=== PATIENT | male | born 1980 | race Caucasian/White ===

== ENCOUNTER 2019-01-03 03:58 | Emergency (ER) | payer MEDICAID ==
[~2019-01-03] VITALS: Ht 177.8 cm; Wt 73.1 kg
[~2019-01-03 03:58] MED LIST: OXYC5CAP2 PO; RANI-467 PO
[2019-01-03 05:13] VITALS: BP 127/68
== END 2019-01-03 05:18 | disposition home or self-care (01) ==
LOC: ED 05:12 → MERGE 05:12 → ED 05:18
DX: F41.9 Anxiety disorder, unspecified (principal); R06.00 Dyspnea, unspecified; F15.10 Other stimulant abuse, uncomplicated; K21.9 Gastro-esophageal reflux disease without esophagitis; F17.200 Nicotine dependence, unspecified, uncomplicated
CPT/HCPCS: 71045; 93005; 99283

== ENCOUNTER 2019-01-06 00:52 | Emergency (ER) | payer MEDICAID ==
[~2019-01-06] VITALS: Ht 177.8 cm; Wt 72.0 kg
[2019-01-06 00:56] VITALS: BP 138/78
== END 2019-01-06 01:31 | disposition home or self-care (01) ==
LOC: EDBD 00:52 → ED 01:25
DX: L03.312 Cellulitis of back [any part except buttock and flank] (principal); L03.114 Cellulitis of left upper limb; Z72.9 Problem related to lifestyle, unspecified; F15.10 Other stimulant abuse, uncomplicated
CPT/HCPCS: 99283

== ENCOUNTER 2019-12-03 22:56 | Emergency (ER) | payer MEDICAID, OTHER ==
[~2019-12-03] VITALS: Ht 177.8 cm; Wt 76.6 kg
[2019-12-03 22:59] VITALS: BP 132/83
--- NOTE | 2019-12-04 01:13 | NUR ---
DR ASCENCIO AT FOR PT HISTORY AND ASSESSMENT.
[2019-12-04] MEDS ORDERED: ONDANSETRON ODT 4 MG ONE (01:23)
--- NOTE | 2019-12-04 01:27 | NUR ---
PT D/C WITH D/C SUMMARY AND SCRIPTS. ALL QUESTIONS ANSWERED. PT AMBULATES TO REGISTRATION DESK WITH STEADY GAIT FOR D/C HOME.
[2019-12-04] MEDS ORDERED: ONDANSETRON ODT 4 MG PO ONE (01:30)
== END 2019-12-04 ==
LOC: ED 12-04 01:29
DX: R11.2 Nausea with vomiting, unspecified (principal); R10.9 Unspecified abdominal pain; F17.210 Nicotine dependence, cigarettes, uncomplicated
CPT/HCPCS: 99283; 99406

== ENCOUNTER 2019-12-28 21:55 | Emergency (ER) | payer MEDICAID ==
[~2019-12-28] VITALS: Ht 177.8 cm; Wt 74.6 kg
[2019-12-28 22:11] VITALS: BP 157/92
[2019-12-28] MEDS ORDERED: MAALOX/HYOSCYAMINE/LIDOCAINE 45 ML BTL ONE (22:54)
[2019-12-28 23:00] LABS: BASOPHILS # (AUTO) 0.04 x10^3/uL (0-0.1); BASOPHILS % (AUTO) 1 % (0-1); EOSINOPHILS # (AUTO) 0.05 x10^3/uL (0-0.4); EOSINOPHILS % (AUTO) 1 % (1-7); LYMPHOCYTES # (AUTO) 1.76 x10^3/uL (1-3.4); LYMPHOCYTES % (AUTO) 20 % (22-44); MD NO; MEAN CORPUSCULAR HEMOGLOBIN 31.8 pg (27.5-34.5); MEAN CORPUSCULAR HGB CONC 33.7 g/dL (33.2-36.2); MEAN CORPUSCULAR VOLUME 94.4 fL (81-97); MEAN PLATELET VOLUME 6.9 fL (7.4-10.4); MONOCYTES # (AUTO) 0.58 x10^3/uL (0.2-0.8); MONOCYTES % (AUTO) 7 % (2-9); NEUTROPHILS # (AUTO) 6.37 x10^3/uL (1.8-6.8); NEUTROPHILS % (AUTO) 72 % (42-75); PLATELET COUNT 338 x10^3/uL (130-400); RED BLOOD COUNT 4.63 x10^6/uL (4.38-5.82); RED CELL DISTRIBUTION WIDTH 13.2 % (9.4-14.8)
[2019-12-28] MEDS ORDERED: MAALOX/HYOSCYAMINE/LIDOCAINE 45 ML BTL PO ONE (23:00)
[2019-12-28 23:09] LABS: ALANINE AMINOTRANSFERASE 106 U/L (12-78); ALBUMIN 3.3 g/dL (3.4-5.0); ANION GAP 4 mmol/L (5-15); CALCIUM 8.3 mg/dL (8.5-10.1); CHLORIDE 110 mmol/L (98-107)
[2019-12-28 23:12] LABS: ALKALINE PHOSPHATASE 91 U/L (45-117); BILIRUBIN,TOTAL 0.5 mg/dL (0.2-1.0); CREATININE 0.93 mg/dL (0.7-1.3); TOTAL PROTEIN 7.5 g/dL (6.4-8.2)
== END 2019-12-28 23:51 | disposition home or self-care (01) ==
LOC: ED 22:55
DX: R10.84 Generalized abdominal pain (principal); F15.10 Other stimulant abuse, uncomplicated; F17.210 Nicotine dependence, cigarettes, uncomplicated; Z72.9 Problem related to lifestyle, unspecified; R00.0 Tachycardia, unspecified
CPT/HCPCS: 36415; 80053; 83690; 85025; 99283; 99406

== ENCOUNTER 2020-01-03 23:03 | Emergency (ER) | payer MEDICAID ==
[~2020-01-03] VITALS: Ht 177.8 cm; Wt 73.8 kg
[2020-01-03 23:41] LABS: BASOPHILS # (AUTO) 0.05 x10^3/uL (0-0.1); BASOPHILS % (AUTO) 0 % (0-1); EOSINOPHILS # (AUTO) 0.06 x10^3/uL (0-0.4); EOSINOPHILS % (AUTO) 1 % (1-7); LYMPHOCYTES % (AUTO) 16 % (22-44); MD NO; MEAN CORPUSCULAR HEMOGLOBIN 31.2 pg (27.5-34.5); MEAN CORPUSCULAR HGB CONC 32.5 g/dL (33.2-36.2); MEAN CORPUSCULAR VOLUME 96.1 fL (81-97); MEAN PLATELET VOLUME 6.6 fL (7.4-10.4); MONOCYTES # (AUTO) 0.61 x10^3/uL (0.2-0.8); MONOCYTES % (AUTO) 5 % (2-9); NEUTROPHILS % (AUTO) 78 % (42-75); PLATELET COUNT 398 x10^3/uL (130-400); RED BLOOD COUNT 5.38 x10^6/uL (4.38-5.82); RED CELL DISTRIBUTION WIDTH 13.4 % (9.4-14.8)
[2020-01-03 23:46] LABS: ANION GAP 9 mmol/L (5-15); CALCIUM 9.2 mg/dL (8.5-10.1); CHLORIDE 112 mmol/L (98-107); CREATININE 0.96 mg/dL (0.7-1.3)
--- NOTE | 2020-01-04 00:35 | NUR ---
PT TO ROOM FROM LOBBY AT THIS TIME.
--- NOTE | 2020-01-04 00:53 | NUR ---
PT TO ED WITH C/O OF TESTICULAR HERNIA. PT REPORTS PUSHING IT BACK IN, HERNIA CURRENTLY OUT. ERP IN ROOM TO DISCUSS POC WITH PT. PT CONNECTED TO MONITORING, CALL LIGHT WITHIN REACH, ALL SAFETY MEASURES IN PLACE.
[2020-01-04 01:06] VITALS: BP 137/74
== END 2020-01-04 01:08 | disposition home or self-care (01) ==
LOC: ED 01-04 00:45
DX: K40.91 Unilateral inguinal hernia, without obstruction or gangrene, recurrent (principal); K59.00 Constipation, unspecified
CPT/HCPCS: 36415; 74021; 76857; 80048; 85025; 99285

== ENCOUNTER 2020-01-15 08:32 | Emergency (ER) | payer MEDICAID ==
[~2020-01-15] VITALS: Ht 177.8 cm; Wt 76.3 kg
[2020-01-15 08:36] VITALS: BP 126/74
== END 2020-01-15 09:15 ==
LOC: ED 09:04
DX: L03.811 Cellulitis of head [any part, except face] (principal); L03.011 Cellulitis of right finger
CPT/HCPCS: 99283

== ENCOUNTER 2020-03-04 21:24 | Emergency (ER) | payer MEDICAID ==
[~2020-03-04] VITALS: Ht 177.8 cm; Wt 72.7 kg
[2020-03-04 21:29] VITALS: BP 125/70
[2020-03-04] MEDS ORDERED: ONDANSETRON ODT 8 MG PO ONE (22:00)
[2020-03-04 22:01] LABS: BASOPHILS # (AUTO) 0.03 x10^3/uL (0-0.1); BASOPHILS % (AUTO) 0 % (0-1); EOSINOPHILS # (AUTO) 0.24 x10^3/uL (0-0.4); EOSINOPHILS % (AUTO) 4 % (1-7); LYMPHOCYTES # (AUTO) 1.61 x10^3/uL (1-3.4); LYMPHOCYTES % (AUTO) 24 % (22-44); MD NO; MEAN CORPUSCULAR HEMOGLOBIN 31.8 pg (27.5-34.5); MEAN CORPUSCULAR HGB CONC 33.5 g/dL (33.2-36.2); MONOCYTES # (AUTO) 0.37 x10^3/uL (0.2-0.8); MONOCYTES % (AUTO) 6 % (2-9); NEUTROPHILS # (AUTO) 4.41 x10^3/uL (1.8-6.8); NEUTROPHILS % (AUTO) 66 % (42-75); PLATELET COUNT 313 x10^3/uL (130-400); RED BLOOD COUNT 4.44 x10^6/uL (4.38-5.82); RED CELL DISTRIBUTION WIDTH 13.5 % (9.4-14.8)
[2020-03-04] MEDS ORDERED: ONDANSETRON ODT 4 MG ONE (22:06)
[2020-03-04] MEDS ORDERED: ONDANSETRON ODT 8 MG ONE (22:08)
[2020-03-04 22:09] LABS: ALANINE AMINOTRANSFERASE 76 U/L (12-78); ALBUMIN 3.3 g/dL (3.4-5.0); ANION GAP 4 mmol/L (5-15); CALCIUM 8.4 mg/dL (8.5-10.1); CHLORIDE 109 mmol/L (98-107); CREATININE 1.18 mg/dL (0.7-1.3)
[2020-03-04 22:12] LABS: ALKALINE PHOSPHATASE 115 U/L (45-117); BILIRUBIN,TOTAL 0.4 mg/dL (0.2-1.0); TOTAL PROTEIN 6.8 g/dL (6.4-8.2)
== END 2020-03-04 22:33 | disposition home or self-care (01) ==
LOC: ED 22:25
DX: R10.84 Generalized abdominal pain (principal); R11.0 Nausea; F15.10 Other stimulant abuse, uncomplicated; F17.200 Nicotine dependence, unspecified, uncomplicated; Z72.9 Problem related to lifestyle, unspecified
CPT/HCPCS: 36415; 80053; 83690; 85025; 99283; Q0162

== ENCOUNTER 2020-06-21 16:14 | Emergency (ER) | payer MEDICAID ==
[~2020-06-21] VITALS: Ht 177.8 cm; Wt 71.2 kg
--- NOTE | 2020-06-21 18:51 | NUR ---
not in lobby at this time
--- NOTE | 2020-06-21 19:27 | NUR ---
ASSESSMENT MADE. CHART UP FOR MD TO RECHECK.
--- NOTE | 2020-06-21 19:32 | NUR ---
PA AT BEDSIDE.
[2020-06-21 19:50] VITALS: BP 141/89
--- NOTE | 2020-06-21 19:50 | NUR ---
PT RESTING IN ROOM. NO ACUTE DISTRESS NOTED. VS STABLE. CALL LIGHT IN PLACE. WILL CONTINUE TO MONITOR.
== END 2020-06-21 20:40 | disposition home or self-care (01) ==
LOC: ED 20:39
DX: J18.9 Pneumonia, unspecified organism (principal); Z20.822 Contact with and (suspected) exposure to COVID-19; B34.9 Viral infection, unspecified; Z88.8 Allergy status to other drugs, medicaments and biological substances
CPT/HCPCS: 71045; 87635; 99284

== ENCOUNTER 2020-10-08 01:42 | Emergency (ER) | payer MEDICAID ==
[2020-10-08 02:48] LABS: BASOPHILS % (AUTO) 1 % (0-1); EOSINOPHILS % (AUTO) 1 % (1-7); LYMPHOCYTES % (AUTO) 21 % (22-44); MEAN CORPUSCULAR HEMOGLOBIN 31.7 pg (27.5-34.5); MEAN CORPUSCULAR HGB CONC 33.6 g/dL (33.2-36.2); MEAN PLATELET VOLUME 6.7 fL (7.4-10.4); MONOCYTES % (AUTO) 7 % (2-9); NEUTROPHILS % (AUTO) 70 % (42-75); PLATELET COUNT 360 x10^3/uL (130-400); RED BLOOD COUNT 4.92 x10^6/uL (4.38-5.82); RED CELL DISTRIBUTION WIDTH 13.7 % (9.4-14.8)
[2020-10-08 02:56] LABS: MD NO
[2020-10-08 02:59] LABS: ANION GAP 6 mmol/L (5-15); CALCIUM 8.9 mg/dL (8.5-10.1); CHLORIDE 108 mmol/L (98-107); CREATININE 0.92 mg/dL (0.7-1.3)
[2020-10-08 03:02] LABS: TROPONIN I < 0.015 ng/mL (0.000-0.045)
--- NOTE | 2020-10-08 04:11 | NUR ---
Pt texting on phone, waiting for dispo.
[2020-10-08 04:37] VITALS: BP 125/88
== END 2020-10-08 04:38 | disposition home or self-care (01) ==
LOC: ED 03:00
DX: J20.9 Acute bronchitis, unspecified (principal); J02.8 Acute pharyngitis due to other specified organisms; B97.89 Other viral agents as the cause of diseases classified elsewhere; F15.10 Other stimulant abuse, uncomplicated; Z72.9 Problem related to lifestyle, unspecified; R94.31 Abnormal electrocardiogram [ECG] [EKG]; Z86.19 Personal history of other infectious and parasitic diseases
CPT/HCPCS: 36415; 71045; 80048; 82040; 83880; 84484; 85025; 87081; 87880; 93005; 99285

== ENCOUNTER 2020-11-26 03:39 | Emergency (ER) | payer MEDICAID ==
[~2020-11-26] VITALS: Ht 177.8 cm; Wt 73.1 kg
[2020-11-26 03:42] VITALS: BP 137/85
== END 2020-11-26 04:16 | disposition home or self-care (01) ==
LOC: ED 04:00
DX: L03.113 Cellulitis of right upper limb (principal); L03.114 Cellulitis of left upper limb; R00.0 Tachycardia, unspecified; F17.210 Nicotine dependence, cigarettes, uncomplicated
CPT/HCPCS: 99283; 99406